=== PATIENT | male | born 1965 | race African-American/Black ===

== ENCOUNTER → 2019-02-21 | Outpatient (CLI) | payer BC ==
--- NOTE | 2019-02-21 17:25 | RAD ---
EXAM: Left knee, 3 views. HISTORY: Pain. COMPARISON: None. FINDINGS: 3 views of the left knee are obtained. There is no fracture, dislocation or subluxation. There is mild tricompartmental spurring. There is enthesopathy along the superior patella. There is no joint effusion. There is benign osseous excrescence along the proximal tibial metadiaphysis. IMPRESSION: Mild tricompartmental osteoarthritis of the left knee. No acute osseous finding. Electronically signed by: Jane Rivera MD (02/21/2019 5:22 PM) [facility]
== END | disposition home or self-care (01) ==
LOC: DXRAD 16:49
PROVIDERS: ATTEND General Practice
DX: M17.12 Unilateral primary osteoarthritis, left knee (principal); M76.52 Patellar tendinitis, left knee
CPT/HCPCS: 73562